=== PATIENT | male | born 1990 | race Two or more races ===

== ENCOUNTER 2024-08-03 16:30 | Emergency (ER) | payer OTHER ==
[~2024-08-03] VITALS: Ht 177.8 cm; Wt 65.8 kg
[2024-08-03 16:32] VITALS: O2SAT 97
[2024-08-03] MEDS: LIDOCAINE 1%-EPI 1:100,000 20 ML VIAL IJ ONE (17:00)
[2024-08-03] MEDS ORDERED: LIDOCAINE 1%-EPI 1:100,000 20 ML VIAL ONE (17:10)
[2024-08-03] MEDS: NEOMY/BACITRA/POLYMYXIN B OINT UD PACKET TP ONE ×2 (19:16)
== END 2024-08-03 19:23 | disposition home or self-care (01) ==
LOC: ER 16:31
DX: S51.812A Laceration without foreign body of left forearm, initial encounter (principal); W26.8XXA Contact with other sharp object(s), not elsewhere classified, initial encounter; Y93.89 Activity, other specified; Y92.89 Other specified places as the place of occurrence of the external cause; Y99.8 Other external cause status
CPT/HCPCS: 12002; 99283; J3490; A4606; A4663

== ENCOUNTER 2024-08-10 12:52 | Emergency (ER) | payer SELFPAY ==
[~2024-08-10] VITALS: Ht 177.8 cm; Wt 65.8 kg
[2024-08-10 13:20] VITALS: BP 124/77; O2SAT 100
== END 2024-08-10 13:27 | disposition home or self-care (01) ==
LOC: ER 12:52
DX: S51.812D Laceration without foreign body of left forearm, subsequent encounter (principal); Z48.02 Encounter for removal of sutures; X58.XXXD Exposure to other specified factors, subsequent encounter
CPT/HCPCS: A4606; A4663